=== PATIENT | female | born 1960 | race Hispanic/Latino ===

== ENCOUNTER 2025-01-25 19:51 | Emergency (ER) | payer BC, MEDICARE ==
[~2025-01-25] VITALS: Ht 157.5 cm; Wt 79.4 kg
[2025-01-25 19:52] VITALS: BP 142/77; PULSE 90; RESP 20; TEMP 98.5
--- NOTE | 2025-01-26 00:03 | NUR ---
Mel farmer in [place] - 01/26/25 at 0021 by [email or web address] NO CALL NO ANSWER AT THIS TIME./SAMANTHA
--- NOTE | 2025-01-26 00:03 | NUR ---
CALL, NO ANSWER AT THIS TIME./SAMANTHA
--- NOTE | 2025-01-26 00:21 | NUR ---
CALLED, NO ANSWER AT THIS TIMEX2./SAMANTHA
--- NOTE | 2025-01-26 00:36 | NUR ---
CALLED. NO ANSWER AT THIS TIME./SAMANTHA
== END 2025-01-26 00:37 | disposition left against medical advice (07) ==
LOC: EDH 19:51
DX: M79.662 Pain in left lower leg (principal); M79.661 Pain in right lower leg; Z53.21 Procedure and treatment not carried out due to patient leaving prior to being seen by health care provider